=== PATIENT | male | born 1975 | race Caucasian/White ===

== ENCOUNTER 2024-09-04 22:23 | Emergency (ER) | payer BC, SELFPAY ==
[2024-09-04 22:24] VITALS: BP 160/107
[2024-09-04 22:44] VITALS: BP 150/91
[2024-09-04 23:00] VITALS: BP 148/95
[2024-09-04 23:07] VITALS: BMI 36.1
[2024-09-04 23:47] LABS: % Basophils 0.4 % (0-2); % Eosinophils 0.9 % (0-6); % Immature Granulocytes 0.3 % (0-0.5); % Lymphocytes 25.9 % (20.5-51.1); % Monocytes 7.7 % (1.7-9.3); % Neutrophils 64.8 % (42.2-75.2); Absolute Eosinophils 0.1 10^3/uL (0-0.7); Absolute Lymphocytes 2.7 10^3/uL (1.2-3.4); Absolute Monocytes 0.8 10^3/uL (0.1-0.6); Absolute Neutrophils 6.7 10^3/uL (1.4-6.5); Hematocrit 47.7 % (39.0-52.0); Hemoglobin 17.1 g/dL (13.0-18.0); Mean Corp Hgb Conc. 35.8 g/dL (33.0-37.0); Mean Corpuscular Hgb 30.4 pg (27.0-31.0); Mean Corpuscular Volume 84.7 fL (80.0-94.0); Mean Platelet Volume 8.5 fL (7.4-10.4); Nucleated Red Blood Cells % 0 % (-); Platelet Count 123 10^3/uL (130-400); Red Blood Cell Count 5.63 10^6/uL (4.70-6.10); Red Cell Dist. Width 12.3 % (11.5-14.5); White Blood Cell Count 10.3 10^3/uL (4.8-10.8)
[2024-09-04 23:48] LABS: INR 1.04; PT 13.9 Sec (11.4-14.6)
[2024-09-04 23:49] LABS: APTT 26.8 Sec (23.4-35.0)
[2024-09-04 23:59] LABS: ALT (SGPT) 22 U/L (0-50); AST (SGOT) 24 U/L (17-59); Albumin 4.6 g/dl (3.5-5.0); Alkaline Phosphatase 66 U/L (38-126); Blood Urea Nitrogen 11 mg/dl (9-20); Calcium 9.5 mg/dl (8.4-10.2); Carbon Dioxide 24 mmol/L (22-30); Chloride 98 mmol/L (98-107); Estimated Creatinine Clearance > 125 ml/min; Glucose 196 mg/dl (70-99); Potassium 3.9 mmol/L (3.5-5.1); Sodium 133 mmol/L (135-145); Total Bilirubin 1.7 mg/dl (0.2-1.3); Total Protein 7.2 g/dl (6.3-8.2); eGFR > 60.00
[2024-09-05 00:01] LABS: Troponin I < 0.012 ng/ml
--- NOTE | 2024-09-05 00:11 | ED.GENMED ---
History of Present Illness
General
Chief Complaint: Blood Pressure Problem
Source: patient
Exam Limitations: none
Time Seen by Provider: 09/04/24 22:57
Nursing documentation reviewed up to this point in time: agreed with
History of Present Illness
History of Present Illness:
Pleasant 41-year-old male presents to the emergency department from [facility]. He was restarted on Cymbalta and staff there noticed his blood pressure was elevated. Patient admits to being under some stress, but denies chest
pain or shortness of breath. He has no complaints at this time. He states that he never had any symptoms from the hypertension. He was given clonidine 0.1 mg earlier this evening. They just wanted him checked out. Denies fever, chills, nausea
or vomiting. Reports no headache blurry vision dizziness back pain difficulty urinating or confusion. He states that he he feels 'fine' and does not know why he is here.
Review of Systems
Review of Systems
Allergies reviewed?: Yes
Other source history: guardian ([facility] associate is with him)
All Other Systems: ROS reviewed and negative except as documented in HPI and ROS
Constitutional: Reports no symptoms
EENT: Reports no symptoms
Respiratory: Reports no symptoms
Cardiac: Reports no symptoms
ABD/GI: Reports no symptoms
: Reports no symptoms
Musculoskeletal: Reports no symptoms
Skin: Reports no symptoms
Neurological: Reports no symptoms
Endocrine: Reports no symptoms
Hematologic/Lymphatic: Reports no symptoms
Psychiatric: Reports no symptoms
Phy Exam
General Physical Exam
General Presentation: well appearing and no apparent distress
General Skin: warm and dry
General Habitus: normal
General Mental: alert
General Hydration: appears well hydrated
ENT Exam
ENT Exam: EOMI, pharynx normal, neck supple and normocephalic
Eye Exam
Eye Exam: PERRL, cornea clear and conjunctiva normal
Cardiovascular Exam
Cardiovascular Exam: regular rate/rhythm, no edema, no murmur and normal peripheral pulses
Pulmonary Exam
Pulmonary Exam: lungs clear, no respiratory distress, no rales, no crackles, no rhonchi, no stridor, no wheezing and no cough
Gastrointestinal Exam
Gastrointestinal Exam: normal bowel sounds, non tender, soft, no organomegaly, no pulsatile mass and non distended
Neurological Exam
Neurological Exam: alert, oriented x3, no motor deficits and speech normal
Musculoskeletal Exam
Musculoskeletal Exam: full ROM and no edema
Skin Exam
Skin Exam: normal color, warm/dry, no rash and no petechia
Psychiatric Exam
Psychiatric Exam: normal mood/affect
Course
Orders/Labs/Results
Orders:
Orders
09/04/24 22:28
EKG [Electrocardiogram (*1)] Urgent
Reason for Study: Hypertension, Benign
09/04/24 22:29
EKG- Treatment ONCE
09/04/24 23:29
Complete Blood Count/With Diff Urgent
Comprehensive Metabolic Panel Urgent
PTT Urgent
Prothrombin Time Urgent
TSH Urgent
Troponin I Urgent
Abnormal Lab Results
09/04/24
23:29
Plt Count 123 L 10^3/uL
(130-400)
Absolute Neuts (auto) 6.7 H 10^3/uL
(1.4-6.5)
Absolute Monos (auto) 0.8 H 10^3/uL
(0.1-0.6)
Sodium 133 L mmol/L
(135-145)
Glucose 196 H mg/dl
(70-99)
Total Bilirubin 1.7 H mg/dl
(0.2-1.3)
09/04/24 23:29
09/04/24 23:29
Vital Signs
Initial and Last Documented VS:
Initial Vital Signs
Temp Pulse Resp BP Pulse Ox
98.2 F 89 14 160/107 94
09/04/24 22:24 09/04/24 22:24 09/04/24 22:24 09/04/24 22:24 09/04/24 22:24
Last Documented Vital Signs
Temp Pulse Resp BP Pulse Ox
98.2 F 87 21 148/95 95
09/04/24 22:24 09/04/24 23:15 09/04/24 23:15 09/04/24 23:00 09/04/24 23:15
*Critical Care Note
Total Time (30-74mins, 75-104mins- exclusive of procedures): Not Applicable
Update Note
Update Note:
Patient's lab work is reasonable. Considering he had no complaints, he is to be discharged back to the facility. He will follow-up with his psychiatrist regarding the Cymbalta. Patient has no questions at this time. Being discharged in stable
condition.
EKG shows normal sinus rhythm rate of 78 with normal intervals, normal axis. No evidence of acute ischemia present. This is a normal EKG. No comparison EKG is available.
ED Attending Note
-
Portions of this chart may have been created with voice recognition software.� Occasional wrong word or��sound alike� substitutions may have occurred due to the inherent limitations of voice recognition software.
Discharge Plan
Departure
Patient Disposition: Home (Routine Discharge)
Date of Disposition: 09/05/24
Time of Disposition: 00:14
Patient with high blood pressure during this ER visit?: Yes
Condition: Good
Discharge Problem:
High blood pressure
Instructions: High Blood Pressure (DC)
Prescriptions:
No Action
clonidine HCl 0.1 mg Tablet
0.1 mg PO PRN (Reason: anxiety/high BP)
Patient Comments:
Hold if BP < 90/60 or HR < 60
duloxetine [Cymbalta] 20 mg Capsule,Delayed Release(Dr/Ec)
20 mg PO BID
Referrals:
[facility] [Outside]
UNKNOWN - PT DOES,NOT KNOW [Family Provider] -
Activity Restrictions/Additional Instructions:
It was a pleasure meeting you and taking part in your care. We hope for your continued healing and wellness.
Please read discharge instructions in their entirety. However, they are for general education and may not describe your exact diagnosis at discharge. Information on your ER visit and medical conditions were discussed with you along with appropriate
follow up information...
If indicated, please take your medications as instructed and indicated on discharge paperwork.
Please schedule a follow up appointment as directed. Call to schedule an appointment
Please return to the emergency department with ANY change in, persisting, or worsening of symptoms. If any of your symptoms do not improve, or persist, or become more severe within 6-12 hours, please return to the emergency department for further
care.
Please return to the emergency department if you develop a headache, neck pain/stiffness, fever greater than 100.4F, chest pain, shortness of breath, persistent nausea, vomiting, slurred speech, difficulty walking, numbness/tingling, weakness, signs
of infection or any other symptoms that are worrisome to you.
If you have any questions or concerns please do not hesitate to call the Hospital at or E-mail me directly at [email or web address]
Interventions
Interventions:
*Risk Screen - Suicide Last Done: 09/04/24 22:24
*General Assessment Last Done: 09/04/24 22:24
*Neglect/Abuse Screening Last Done: 09/04/24 22:24
ED- Fall Risk Assessment Last Done: 09/04/24 23:07
*ED COVID-19 Vaccine History Last Done: 09/04/24 23:20
ED- Cardiac Assessment Last Done: 09/04/24 23:07
ED- Neurological Assessment Last Done: 09/04/24 23:07
ED- Pulmonary Assessment Last Done: 09/04/24 23:07
Discharge Date and Time
Print Language: SYRIAC
[2024-09-05 00:31] LABS: TSH 3.49 uIU/ml (0.47-4.68)
[2024-09-05 00:34] VITALS: BP 164/96
== END 2024-09-05 00:55 | disposition home or self-care (01) ==
LOC: EMR 22:23
PROVIDERS: EMERGENCY PHYSICIAN Student in an Organized Health Care Education/Training Program
DX: I10 Essential (primary) hypertension (principal); G62.9 Polyneuropathy, unspecified; F32.A Depression, unspecified; Z85.6 Personal history of leukemia
CPT/HCPCS: 99283; 80053; 84443; 84484; 85025; 85610; 85730; 93005